=== PATIENT | male | born 1980 | race Native Hawaiian/Other Pacific Islander ===

== ENCOUNTER 2016-06-02 09:56 | Day surgery (SDC) | payer MEDICAID ==
[2016-05-21 10:33] VITALS: BMI 40.2
[2016-06-02] MEDS ORDERED: EPINEPHrine 1 mg/ml (1:1000) Inj ONE (11:04)
[2016-06-02] MEDS ORDERED: Lidocaine 4% (Laryng-O-Jet) Kit MM ONE (11:16)
[2016-06-02] MEDS: Lidocaine 2% Inj (20ml) ONE ×2 (11:46→11:50)
[2016-06-02] MEDS ORDERED: HYDROmorphone 0.5 mg/0.5 ml ISec IVP PRN (12:11)
--- NOTE | 2016-06-02 13:14 | RAD ---
PROCEDURE: CHEST RADIOGRAPH, 1 VIEW HISTORY: POST OP BRONCH R/O PNUEMO COMPARISON: None available. FINDINGS: LUNGS: Clear. Shallow lung volumes PLEURA: No pneumothorax or pleural fluid seen. CARDIOVASCULAR: Normal. OSSEOUS STRUCTURES: No significant abnormalities. VISUALIZED UPPER ABDOMEN: Normal. OTHER FINDINGS: None. IMPRESSION: No pneumothorax. No consolidation/ gross aspiration or atelectasis
[2016-06-02 13:27] VITALS: PULSE 70
[2016-06-02 13:53] VITALS: BP 123/70; RESP 18; TEMP 98; O2SAT 100
--- NOTE | 2016-06-03 07:00 | OP ---
PROCEDURE DATE: 06/02/2016 PROCEDURE: Bronchoscopy and biopsy. INDICATION: Hemoptysis. ANESTHESIA: Local IV sedation. Scope passed through right nostril. Vocal cord inspected, normal. Airway slightly hyperemic. Trach ea normal. There is a lot of mucus, ____ mucus. There was extensive mucus throughout the bronchial tree but otherwise no endobronchial lesions. Washing was done. Tolerated the procedure. Harsh Newsome MD cc: [id number] TT: 06/02/2016 12:23:22 sn
== END 2016-06-02 13:55 | disposition home or self-care (01) ==
LOC: C.SDS 09:56
PROVIDERS: ATTEND Internal Medicine Pulmonary Disease
DX: J98.09 Other diseases of bronchus, not elsewhere classified (principal); R04.2 Hemoptysis